=== PATIENT | female | born 1970 | race Caucasian/White ===

== ENCOUNTER 2020-12-18 18:56 | Emergency (ER) | payer BC, OTHER ==
[2020-12-18 19:32] VITALS: BP 134/86; PULSE 80; TEMP 98.6; BMI 27.4
[2020-12-18] MEDS ORDERED: ONDANSETRON 4 MG/2 ML VIAL IVPUSH ONE (20:33)
[2020-12-18] MEDS ORDERED: morphine CARPU-JECT 4 MG/1 ML DISP.SYRIN IVPUSH ONE (20:33)
[2020-12-18] MEDS ORDERED: SODIUM CHLORIDE 1,000 ML IV STA (20:33)
[2020-12-18] MEDS ORDERED: morphine SULFATE 4 MG/ML VIAL ONE (20:36)
[2020-12-18] MEDS ORDERED: ONDANSETRON 4 MG/2 ML VIAL ONE (20:37)
[2020-12-18 21:12] LABS: BASO % 2.2 % (0-2.0); EOS % 2.4 % (0-4.5); HEMATOCRIT 39.8 % (32.4-45.2); HEMOGLOBIN 13.6 GM/dL (10.7-15.3); LYMPH % 34.6 % (8-40); MCH 32.4 pg (25.7-33.7); MCHC 34.2 g/dl (32.0-36.0); MEAN CELL VOLUME 94.9 fl (80-96); MEAN PLT VOLUME 9.6 fl (7.5-11.1); NEUT % 49.8 % (42.8-82.8); PLATELET COUNT 245 K/MM3 (134-434); RDW 12.5 % (11.6-15.6); WHITE BLOOD COUNT 2.5 K/mm3 (4.0-10.0)
[2020-12-18 21:30] LABS: CHLORIDE 107 mmol/L (98-107); POTASSIUM 4.5 mmol/L (3.5-5.1); SODIUM 142 mmol/L (136-145)
[2020-12-18 21:33] LABS: ALBUMIN 3.7 g/dl (3.4-5.0); ANION GAP 6 MMOL/L (8-16); CALCIUM 9.2 mg/dL (8.5-10.1); CO2 29 mmol/L (21-32); GLUCOSE,RANDOM 99 mg/dL (74-106); LIPASE 79 U/L (73-393)
[2020-12-18 21:34] LABS: BLOOD UREA NITROGEN 13.2 mg/dL (7-18)
[2020-12-18 21:36] LABS: CREATININE 0.8 mg/dL (0.55-1.3); SGOT/AST 16 U/L (15-37); SGPT/ALT 28 U/L (13-61)
[2020-12-18 21:38] LABS: BILIRUBIN,TOTAL 0.2 mg/dL (0.2-1); TOT PROT 7.2 g/dl (6.4-8.2)
[2020-12-18 21:39] LABS: ALK PHOS 70 U/L (45-117)
== END 2020-12-18 22:53 | disposition home or self-care (01) ==
LOC: JER 18:56
PROC: 3E033NZ Introduction of Analgesics, Hypnotics, Sedatives into Peripheral Vein, Percutaneous Approach (ICD-10-PCS; principal; 2020-12-18)
PROC: 3E033GC Introduction of Other Therapeutic Substance into Peripheral Vein, Percutaneous Approach (ICD-10-PCS; 2020-12-18)
PROC: 3E0337Z Introduction of Electrolytic and Water Balance Substance into Peripheral Vein, Percutaneous Approach (ICD-10-PCS; 2020-12-18)
DX: R10.13 Epigastric pain (principal)
CPT/HCPCS: 36415; 76705-TC; 80053; 82550; 83690; 84484; 85025; 93005; 93010; 99285-25

== ENCOUNTER 2021-04-09 11:29 | Emergency (ER) | payer BC ==
[2021-04-09 11:37] VITALS: BMI 28.9
[2021-04-09 13:36] LABS: PH,URINE 8.5 (5.0-8.0); URINE APPEARANCE CLEAR; URINE BILIRUBIN NEGATIVE (NEGATIVE); URINE COLOR YELLOW; URINE GLUCOSE (UA) NEGATIVE (NEGATIVE); URINE KETONE NEGATIVE (NEGATIVE); URINE LEUK ESTERASE NEGATIVE (NEGATIVE); URINE NITRITE NEGATIVE (NEGATIVE); URINE PROTEIN NEGATIVE (NEGATIVE); URINE UROBILINOGEN 0.2 mg/dL (0.2-1.0)
[2021-04-09 13:45] LABS: EOS % 3.4 % (0-4.5); HEMATOCRIT 40.9 % (32.4-45.2); HEMOGLOBIN 13.9 GM/dL (10.7-15.3); LYMPH % 39.8 % (8-40); MCH 31.2 pg (25.7-33.7); MCHC 34.1 g/dl (32.0-36.0); MEAN CELL VOLUME 91.5 fl (80-96); MEAN PLT VOLUME 9.5 fl (7.5-11.1); MONO % 12.7 % (3.8-10.2); NEUT % 42.1 % (42.8-82.8); PLATELET COUNT 225 K/MM3 (134-434); RBC 4.47 M/mm3 (3.60-5.2); RDW 13.3 % (11.6-15.6); WHITE BLOOD COUNT 2.1 K/mm3 (4.0-10.0)
[2021-04-09 14:07] LABS: ALBUMIN 3.8 g/dl (3.4-5.0); CALCIUM 9.6 mg/dL (8.5-10.1)
[2021-04-09 14:10] LABS: CREATININE 0.7 mg/dL (0.55-1.3)
[2021-04-09 14:11] LABS: BILIRUBIN,TOTAL 0.6 mg/dL (0.2-1); TOT PROT 7.5 g/dl (6.4-8.2)
[2021-04-09 14:14] LABS: BLOOD UREA NITROGEN 12.1 mg/dL (7-18)
[2021-04-09 16:54] VITALS: BP 125/84; PULSE 67; TEMP 98.2
== END 2021-04-09 16:53 | disposition home or self-care (01) ==
LOC: JER 11:29
DX: R42 Dizziness and giddiness (principal); D72.818 Other decreased white blood cell count
CPT/HCPCS: 36415; 70450-TC; 80053; 81003; 85025; 87086; 93005; 93010; 99285-25

== ENCOUNTER 2022-03-06 11:53 | Emergency (ER) | payer BC ==
[2022-03-06 12:09] VITALS: BP 113/78; PULSE 87; TEMP 98; BMI 27.6
[2022-03-07 12:12] LABS: SARS-CoV-2 NAA Not Detected (Not Detected)
== END 2022-03-06 14:32 | disposition home or self-care (01) ==
LOC: JER 11:53
DX: M79.10 Myalgia, unspecified site (principal); J09.X2 Influenza due to identified novel influenza A virus with other respiratory manifestations
CPT/HCPCS: 87804; 87807; 99283-25; C9803-CS; U0003; U0005

== ENCOUNTER 2024-01-02 21:27 | Emergency (ER) | payer OTHER ==
[2024-01-02 21:33] VITALS: BP 146/92; PULSE 79; RESP 18; TEMP 97.7; BMI 29.2
[2024-01-02] MEDS ORDERED: LIDOCAINE 4% PATCH TP ONE (22:35)
[2024-01-02] MEDS ORDERED: KETOROLAC TROMETHAMINE 30 MG/1 ML VIAL ONE (22:35)
[2024-01-02] MEDS ORDERED: METHOCARBAMOL 500 MG TABLET ONE (22:35)
[2024-01-02] MEDS ORDERED: ACETAMINOPHEN 500 MG TABLET (FP) ONE (22:35)
[2024-01-02] MEDS: KETOROLAC TROMETHAMINE 30 MG/1 ML VIAL IM ONE (22:36)
[2024-01-02] MEDS: LIDOCAINE PATCH REMOVAL MC SCH (22:36)
[2024-01-02] MEDS: METHOCARBAMOL 750 MG TAB PO ONE (22:36)
[2024-01-02] MEDS: ACETAMINOPHEN 500 MG TABLET (FP) PO ONE (22:37)
[2024-01-02] MEDS: LIDOCAINE 5% TOPICAL PATCH TP ONE (22:43)
== END 2024-01-02 23:33 | disposition home or self-care (01) ==
LOC: JER 21:27
PROC: 3E0233Z Introduction of Anti-inflammatory into Muscle, Percutaneous Approach (ICD-10-PCS; principal; 2024-01-02)
DX: M25.512 Pain in left shoulder (principal); M79.622 Pain in left upper arm
CPT/HCPCS: 73030-TC-LT-FY; 99284-25

== ENCOUNTER 2024-09-04 19:18 | Emergency (ER) | payer BC, OTHER ==
[2024-09-04 19:34] VITALS: TEMP 98.6; BMI 28.9
[2024-09-04] MEDS ORDERED: ACETAMINOPHEN INJECTION 100 ML ONE (20:43)
[2024-09-04] MEDS ORDERED: METOCLOPRAMIDE HCL INJECTION 10 MG/2 ML VIAL ONE (20:43)
[2024-09-04] MEDS: ACETAMINOPHEN 1000 MG/100 ML BAG IVPB ONE (21:02)
[2024-09-04] MEDS: METOCLOPRAMIDE HCL INJECTION 10 MG/2 ML VIAL IVPB ONE (21:02)
[2024-09-04] MEDS ORDERED: MECLIZINE HCL 25 MG TABLET (FP) ONE (21:02)
[2024-09-04] MEDS: MECLIZINE HCL 25 MG TABLET (FP) PO ONE (21:06)
[2024-09-04 21:08] LABS: BASO % 0.9 % (0-2.0); EOS % 3.7 % (0-4.5); HEMATOCRIT 41.7 % (32.4-45.2); HEMOGLOBIN 14.3 GM/dL (10.7-15.3); LYMPH % 40.5 % (8-40); MCH 30.8 pg (25.7-33.7); MCHC 34.2 g/dl (32.0-36.0); MEAN CELL VOLUME 90.1 fl (80-96); MEAN PLT VOLUME 8.5 fl (7.5-11.1); MONO % 16.1 % (3.8-10.2); NEUT % 38.8 % (42.8-82.8); PLATELET COUNT 235 10^3/uL (134-434); RBC 4.63 M/mm3 (3.60-5.2); RDW 12.9 % (11.6-15.6); WHITE BLOOD COUNT 2.6 K/mm3 (4.0-10.0)
[2024-09-04 21:15] LABS: INR 0.98 (0.83-1.09); PROTHROMBIN TIME (PATIENT) 11.3 SEC (9.7-13.0)
[2024-09-04 21:17] LABS: ACTIVATED PTT 35.5 SECONDS (25.2-36.5)
[2024-09-04 21:26] LABS: POTASSIUM 3.9 mmol/L (3.5-5.1)
[2024-09-04 21:29] LABS: ALBUMIN 3.8 g/dl (3.4-5.0); MAGNESIUM 2.3 mg/dL (1.8-2.4)
[2024-09-04 21:32] LABS: CREATININE 0.8 mg/dL (0.55-1.3)
[2024-09-04 21:33] LABS: BILIRUBIN,TOTAL 0.3 mg/dL (0.2-1); TOT PROT 7.2 g/dl (6.4-8.2)
[2024-09-04 22:23] LABS: HIV INTERPRETATION NEGATIVE (NEGATIVE)
[2024-09-04 23:35] VITALS: BP 135/83; PULSE 63; RESP 15
== END 2024-09-05 00:51 | disposition home or self-care (01) ==
LOC: JER 19:18
PROC: 3E033GC Introduction of Other Therapeutic Substance into Peripheral Vein, Percutaneous Approach (ICD-10-PCS; principal; 2024-09-04)
PROC: 3E033NZ Introduction of Analgesics, Hypnotics, Sedatives into Peripheral Vein, Percutaneous Approach (ICD-10-PCS; 2024-09-04)
DX: R51.9 Headache, unspecified (principal); R53.1 Weakness; R42 Dizziness and giddiness; R07.89 Other chest pain; M25.511 Pain in right shoulder; I10 Essential (primary) hypertension; Z20.822 Contact with and (suspected) exposure to COVID-19
CPT/HCPCS: 0241U-QW; 36415; 70450-TC; 71045-TC-FY; 73030-TC-RT-FY; 80053; 83735; 84484; 84703; 85025; 85610; 85730; 86803; 87389; 93005; 93010; 99285-25; J0131